=== PATIENT | male | born 1965 | race Asian ===

== ENCOUNTER 2019-08-25 11:41 | Emergency (ER) | payer OTHER ==
[2019-08-25 12:01] VITALS: BMI 28.8
[2019-08-25] MEDS ORDERED: ACETAMINOPHEN 1000 MG/100 ML VIAL (NON FORMULARY) IVPB ONE (12:55)
[2019-08-25] MEDS ORDERED: ACETAMINOPHEN INJECTION 100 ML IVPB ONE (12:59)
--- NOTE | 2019-08-25 13:00 | PDOC ---
History of Present Illness - General Chief Complaint: Pain, Acute Stated Complaint: RT.TESTICLE PAIN/GROIN AREA PROBLEM Time Seen by Provider: 08/25/19 12:35 History Source: Patient Exam Limitations: No Limitations - History of Present Illness Travel History: Yes ([place]) Initial Comments: 08/25/19 12:57 Patient is a 54 year old male with PMH of HTN, HLD, gout who presents with R testicular pain and swelling for 2 months. Pt states that symptoms are worse with standing and walking, improved when he lays flat. He states that his R testicle ocmes increasingly swollen and tender after sanding for several minutes. Pain has worsened over last 2 weeks, so he decided to finally come to the ED. He denies any fevers, chills, abd pain, nausea, vomiting, urinary symptoms. Pt denies hx of STIs. Of note, pt is a heavy alcohol user. He drinks ~6 beers a day. Timing/Duration: reports: getting worse Quality: reports: moderate Past History - Past Medical History Allergies/Adverse Reactions: Allergies Allergy/AdvReac Type Severity Reaction Status Date / Time No Known Allergies Allergy Verified 11/27/17 03:07 Home Medications: Ambulatory Orders Allopurinol [Zyloprim -] 200 mg PO DAILY #30 tablet 12/01/17 Colchicine [Colcrys] 0.6 mg PO BID #0 tablet 12/01/17 Ibuprofen 600 mg PO QID PRN #20 tablet 12/01/17 Metoprolol Tartrate [Lopressor -] 25 mg PO BID #14 tablet 12/01/17 levoFLOXacin [Levaquin -] 500 mg PO DAILY #10 tablet 08/25/19 COPD: No HTN: Yes Hypercholesterolemia: Yes - Surgical History Appendectomy: Yes - Immunization History Immunization Up to Date: No - Psycho Social/Smoking Cessation Hx Smoking Status: No Smoking History: Never smoked Have you smoked in the past 12 months: No Number of Cigarettes Smoked Daily: 0 Information on smoking cessation initiated: No Hx Alcohol Use: Yes (6 beers a day) Drug/Substance Use Hx: No Substance Use Type: Alcohol Review of Systems - Review of Systems Constitutional: Yes: See HPI. No: Fever ABD/GI: Yes: Abdominal Distended. No: Nausea, Vomiting, Abdominal cramping : Yes: Testicular Swelling, Testicular Pain. No: Dysuria *Physical Exam - Vital Signs Last Vital Signs Temp Pulse Resp BP Pulse Ox 98.4 F 83 16 166/103 H 98 08/25/19 11:58 08/25/19 11:58 08/25/19 11:58 08/25/19 11:58 08/25/19 11:58 - Physical Exam General Appearance: Yes: Nourished Cardiovascular: positive: Regular Rhythm, S1, S2. negative: Edema Vascular Pulses: Dorsalis-Pedis (R): 2+, Doralis-Pedis (L): 2+ Gastrointestinal/Abdominal: positive: Normal Bowel Sounds, Protuberent, Distended. negative: Tender, Tenderness Male Genitalia: positive: testicular tenderness, epididymus tender. negative: hematuria ED Treatment Course - LABORATORY CBC & Chemistry Diagram: 08/25/19 13:03 08/25/19 13:03 - RADIOLOGY Radiology Studies Ordered: Category Date Time Status SCROTUM AND CONTENTS US [US] Stat Ultrasound 08/25/19 12:53 Ordered Medical Decision Making - Medical Decision Making 08/25/19 13:07 CBC, CMP, scrotal US, CTAP IV tylenol for pain 08/25/19 16:13 CBC wnl CTAP: no acute pathology. Severely enlarged RLQ mesenteric lymph nodes possible hyperplastic in nature. Scrotal US: right-sided epididymitis and possible orchitis with loculated right- sided hydrocele. >>Consult urology 08/25/19 16:14 08/25/19 18:[address] Mcmullen and recommended outpatient po antibiotics and f/u as outpatient. Pt made aware. Discharge - Discharge Information Problems reviewed: Yes Clinical Impression/Diagnosis: Orchitis and epididymitis Condition: Stable - Admission No - Additional Discharge Information Prescriptions: levoFLOXacin [Levaquin -] 500 mg PO DAILY #10 tablet - Follow up/Referral Referrals: Olvin Matos MD [Staff Physician] - - Patient Discharge Instructions Patient Printed Discharge Instructions: DI for Epididymitis Additional Instructions: Please follow up with Dr. Mcmullen in 1-2 days. Please take your antibiotics as prescribed. Please return to the ER with any worsening symptoms. - Post Discharge Activity
--- NOTE | 2019-08-25 13:23 | PDOC ---
Documentation entered by Bronson Agustin SCRIBE, acting as scribe for David Rodriguez MD. David Rodriguez MD: This documentation has been prepared by the Vamsi rodas Daniel, SCRIBE, under my direction and personally reviewed by me in its entirety. I confirm that the documentation accurately reflects all work, treatment, procedures, and medical decision making performed by me. Attending Attestation - Resident Resident Name: [email or web address] - ED Attending Attestation I have performed the following: I have examined & evaluated the patient, The case was reviewed & discussed with the resident, I agree w/resident's findings & plan, Exceptions are as noted - HPI HPI: 08/25/19 12:53 The patient is a 54 year old male with a past medical history of HTN, HLD, and gout here today for evaluation of R testicular pain and swelling. The patient reports that he has had right testicular pain and swelling intermittently since 06/26 but states that it became worse in the past 2 weeks. He notes that it is worse with ambulating and alleviated by lying flat. Denies abdominal pain. Denies N/V. Denies urinary symptoms. Allergies: NKA Social history: Patient notes 6 beer daily alcohol use. - Physicial Exam PE: 08/25/19 12:53 GENERAL: Awake, alert, and fully oriented, in no acute distress. HEAD: No signs of trauma EYES: PERRLA, EOMI, sclera anicteric, conjunctiva clear ENT: Auricles normal inspection, hearing grossly normal, nares patent, oropharynx clear without exudates. Moist mucosa NECK: Nontender, no stepoffs, Normal ROM, supple, no lymphadenopathy, JVD, or masses LUNGS: Breath sounds equal, clear to auscultation bilaterally. No wheezes, and no crackles HEART: Regular rate and rhythm, normal S1 and S2, no murmurs, rubs or gallops ABDOMEN: Soft, nontender, normoactive bowel sounds. No guarding, no rebound. No masses EXTREMITIES: Normal range of motion, no edema. No clubbing or cyanosis. No cords, erythema, or tenderness NEUROLOGICAL: Cranial nerves II through XII intact. 5/5 strength and sensation in all extremities, Normal speech, normal gait, normal cerebellar function SKIN: Warm, Dry, normal turgor, no rashes or lesions noted. : + R scrotal swelling - Medical Decision Making 08/25/19 13:24 54 M with R scrotal swelling and pain. Suspect inguinal hernia. Pt with no s/s obstruction. - Labs, UA - Scrotal US - CTAP
[2019-08-25 13:32] LABS: HEMATOCRIT 39.6 % (35.4-49); HEMOGLOBIN 13.5 GM/dL (11.7-16.9); MCH 32.7 pg (25.7-33.7); MEAN CELL VOLUME 96.3 fl (80-96); MEAN PLT VOLUME 8.1 fl (7.5-11.1); PLATELET COUNT 217 K/MM3 (134-434); RBC 4.12 M/mm3 (4.00-5.60); RDW 13.2 % (11.9-15.9); WHITE BLOOD COUNT 8.5 K/mm3 (4.0-10.0)
[2019-08-25 13:51] LABS: INR 1.15 (0.83-1.09); PROTHROMBIN TIME (PATIENT) 13.6 SEC (9.7-13.0)
[2019-08-25 13:52] LABS: PH,URINE 5.5 (5.0-8.0); URINE APPEARANCE CLEAR; URINE BILIRUBIN NEGATIVE (NEGATIVE); URINE COLOR DK YELLOW; URINE GLUCOSE (UA) TRACE (NEGATIVE); URINE KETONE NEGATIVE (NEGATIVE); URINE LEUK ESTERASE NEGATIVE (NEGATIVE); URINE NITRITE NEGATIVE (NEGATIVE); URINE PROTEIN TRACE (NEGATIVE)
[2019-08-25 16:19] LABS: ALBUMIN 3.3 g/dl (3.4-5.0); BILIRUBIN,TOTAL 0.3 mg/dL (0.2-1); BLOOD UREA NITROGEN 6.5 mg/dL (7-18); CALCIUM 8.5 mg/dL (8.5-10.1); CREATININE 0.8 mg/dL (0.55-1.3); POTASSIUM 3.5 mmol/L (3.5-5.1); TOT PROT 7.9 g/dl (6.4-8.2)
[2019-08-25] MEDS ORDERED: KETOROLAC TROMETHAMINE 30 MG/1 ML VIAL IVPUSH ONE (17:26)
--- NOTE | 2019-08-25 17:34 | PDOC ---
*Physical Exam - Vital Signs Last Vital Signs Temp Pulse Resp BP Pulse Ox 98.4 F 83 16 166/103 H 98 08/25/19 11:58 08/25/19 11:58 08/25/19 11:58 08/25/19 11:58 08/25/19 11:58 ED Treatment Course - LABORATORY CBC & Chemistry Diagram: 08/25/19 13:03 08/25/19 13:03 - ADDITIONAL ORDERS Additional order review: Laboratory Results 08/25/19 08/25/19 08/25/19 13:03 13:03 13:03 PT with INR 13.60 H INR 1.15 H Sodium Potassium Chloride Carbon Dioxide Anion Gap BUN Creatinine Est GFR (CKD-EPI)AfAm Est GFR (CKD-EPI)NonAf Random Glucose Calcium Total Bilirubin AST ALT Alkaline Phosphatase Total Protein Albumin Urine Color Dk yellow Urine Appearance Clear Urine pH 5.5 Ur Specific Dawson 1.025 Urine Protein Trace Urine Glucose (UA) Trace Urine Ketones Negative Urine Blood Negative Urine Nitrite Negative Urine Bilirubin Negative Urine Urobilinogen 1.0 Ur Leukocyte Esterase Negative Blood Type A POSITIVE Antibody Screen Negative 08/25/19 13:03 PT with INR INR Sodium 136 Potassium 3.5 Chloride 103 Carbon Dioxide 23 Anion Gap 11 BUN 6.5 L Creatinine 0.8 Est GFR (CKD-EPI)AfAm 118.20 Est GFR (CKD-EPI)NonAf 101.99 Random Glucose 169 H Calcium 8.5 Total Bilirubin 0.3 AST 43 H ALT 49 Alkaline Phosphatase 110 Total Protein 7.9 Albumin 3.3 L Urine Color Urine Appearance Urine pH Ur Specific Dawson Urine Protein Urine Glucose (UA) Urine Ketones Urine Blood Urine Nitrite Urine Bilirubin Urine Urobilinogen Ur Leukocyte Esterase Blood Type Antibody Screen 08/25/19 13:03 RBC 4.12 MCV 96.3 H MCHC 34.0 RDW 13.2 MPV 8.1 - Medications Given in the ED: ED Medications Discontinued Medications Generic Name Dose Route Start Last Admin Trade Name Freq PRN Reason Stop Dose Admin Acetaminophen 1,000 mg 08/25/19 12:55 08/25/19 13:11 Ofirmev Injection - IVPB 08/25/19 12:56 1,000 mg ONCE ONE Administration Medical Decision Making - Medical Decision Making 08/25/19 17:33 54-year-old male who presented with right scrotal swelling. Urinalysis negative Ultrasound showed epididymitis and loculated hydrocele We are pending a call back from urology, Dr. Wesley Discharge - Discharge Information Condition: Stable - Follow up/Referral - Patient Discharge Instructions - Post Discharge Activity
[2019-08-25 18:23] VITALS: BP 144/91; PULSE 71; TEMP 97.9
[2019-08-25] MEDS ORDERED: KETOROLAC TROMETHAMINE 30 MG/1 ML VIAL ONE (18:24)
== END 2019-08-25 19:01 | disposition home or self-care (01) ==
LOC: JER 11:41
PROC: 3E033NZ Introduction of Analgesics, Hypnotics, Sedatives into Peripheral Vein, Percutaneous Approach (ICD-10-PCS; principal; 2019-08-25)
PROC: 3E0333Z Introduction of Anti-inflammatory into Peripheral Vein, Percutaneous Approach (ICD-10-PCS; 2019-08-25)
DX: N45.3 Epididymo-orchitis (principal); N43.2 Other hydrocele; I10 Essential (primary) hypertension; E78.5 Hyperlipidemia, unspecified; E78.00 Pure hypercholesterolemia, unspecified
CPT/HCPCS: 36415; 74176-TC; 76870-TC; 80053; 81003; 85027; 85610; 86850; 86900; 86901; 87086; 87491; 87591; 99282-25; J0131

== ENCOUNTER 2020-08-30 23:48 | Emergency (ER) | payer OTHER ==
[2020-08-30 23:58] VITALS: BMI 34.2
[2020-08-31 02:08] VITALS: BP 170/97; PULSE 91; TEMP 98.1
== END 2020-08-31 02:07 | disposition home or self-care (01) ==
LOC: JER 23:48
PROC: 0J9P0ZZ Drainage of Left Lower Leg Subcutaneous Tissue and Fascia, Open Approach (ICD-10-PCS; principal; 2020-08-30)
DX: L03.032 Cellulitis of left toe (principal)
CPT/HCPCS: 73660-TC-LT-FY; 82962; 99284-25

== ENCOUNTER 2022-04-06 08:06 | Emergency (ER) | payer OTHER ==
[2022-04-06 09:36] VITALS: BP 163/112; PULSE 103; TEMP 98.3; BMI 21.5
[2022-04-06] MEDS ORDERED: INDOMETHACIN 50 MG CAPSULE PO ONE (09:38)
[2022-04-06] MEDS ORDERED: predniSONE 20 MG TABLET (UD) PO ONE (10:28)
[2022-04-06] MEDS ORDERED: predniSONE 20 MG TABLET (UD) ONE (10:30)
== END 2022-04-06 10:50 | disposition home or self-care (01) ==
LOC: JERFT 08:06
DX: M10.471 Other secondary gout, right ankle and foot (principal); M25.562 Pain in left knee; G89.29 Other chronic pain
CPT/HCPCS: 73562-TC-LT-FY; 73610-TC-RT-FY; 99284-25

== ENCOUNTER 2025-02-21 14:28 | Observation (INO) | payer OTHER ==
[2025-02-21 14:35] VITALS: BMI 27.3
[2025-02-21 15:46] LABS: ABSOLUTE IMMATURE GRANULOCYTES 0.01 x10^3/uL (0.0-0.031); BASOPHILS # 0.07 x10^3/uL (0.01-0.08); EOSINOPHIL % 3.6 % (0.8-7.0); EOSINOPHILS # 0.24 x10^3/uL (0.04-0.54); HEMOGLOBIN 14.9 g/dL (13.7-17.5); MCHC 34.7 g/dl (32.3-36.5); MEAN CELL VOLUME 94.9 fl (79.0-92.2); MEAN PLT VOLUME 9.9 fl (9.4-12.4); MONOCYTE # 0.71 x10^3/uL (0.30-0.82); MONOCYTE % 10.6 % (5.3-12.2); PLATELET COUNT 182 x10^3/uL (163-337); RDW 11.8 % (12.2-16.1)
[2025-02-21 16:08] LABS: POTASSIUM 3.9 mmol/L (3.5-5.1)
[2025-02-21 16:10] LABS: CALCIUM 9.5 mg/dL (8.5-10.1)
[2025-02-21 16:11] LABS: ALBUMIN 3.6 g/dl (3.4-5.0); BLOOD UREA NITROGEN 9.7 mg/dL (7-18)
[2025-02-21 16:14] LABS: CREATININE 0.8 mg/dL (0.55-1.3)
[2025-02-21 16:15] LABS: BILIRUBIN,TOTAL 0.7 mg/dL (0.2-1); TOT PROT 7.7 g/dl (6.4-8.2)
[2025-02-21 16:26] LABS: EPI CELLS 8 /uL (0-25.1); HYALINE CASTS 0 /uL (0-3.1); URINE APPEARANCE CLEAR; URINE BACTERIA 19 /uL (0-1359); URINE BILIRUBIN NEGATIVE (NEGATIVE); URINE COLOR YELLOW; URINE GLUCOSE (UA) NEGATIVE (NEGATIVE); URINE KETONE NEGATIVE (NEGATIVE); URINE LEUK ESTERASE 2+ (NEGATIVE); URINE NITRITE NEGATIVE (NEGATIVE); URINE PROTEIN NEGATIVE (NEGATIVE); URINE RBC 9 /uL (0-23.9); URINE UROBILINOGEN 0.2 mg/dL (0.2-1.0); URINE WBC 169 /uL (0-25.8)
[2025-02-21] MEDS ORDERED: ONDANSETRON 4 MG/2 ML VIAL ONE (16:49)
[2025-02-21] MEDS: SODIUM CHLORIDE 1,000 ML IV STA (16:59)
[2025-02-21] MEDS: ONDANSETRON *ODT* 4 MG TABLET SL ONE (17:00)
[2025-02-21] MEDS ORDERED: ATORVASTATIN CA 20 MG TABLET (FP) ONE (21:28)
[2025-02-21] MEDS ORDERED: amLODIPine BESYLATE 5 MG TABLET (FP) ONE (21:29)
[2025-02-21] MEDS ORDERED: FOLIC ACID 1 MG TABLET (FP) ONE (21:29)
[2025-02-21] MEDS: ATORVASTATIN CA 20 MG TABLET (FP) PO SCH (21:35)
[2025-02-21] MEDS: amLODIPine BESYLATE 5 MG TABLET (FP) PO ONE (21:35)
[2025-02-21] MEDS: FOLIC ACID 1 MG TABLET (FP) PO ONE (21:35)
[2025-02-21] MEDS: ALLOPURINOL 100 MG TABLET (FP) PO SCH (22:20)
[2025-02-22 07:44] LABS: ABSOLUTE IMMATURE GRANULOCYTES 0.02 x10^3/uL (0.0-0.031); BASOPHILS # 0.07 x10^3/uL (0.01-0.08); EOSINOPHIL % 4.9 % (0.8-7.0); HEMATOCRIT 44.4 % (40.1-51.0); HEMOGLOBIN 14.9 g/dL (13.7-17.5); MCHC 33.6 g/dl (32.3-36.5); MEAN CELL VOLUME 97.8 fl (79.0-92.2); MEAN PLT VOLUME 9.9 fl (9.4-12.4); MONOCYTE # 0.77 x10^3/uL (0.30-0.82); MONOCYTE % 12.5 % (5.3-12.2); PLATELET COUNT 179 x10^3/uL (163-337); RDW 11.9 % (12.2-16.1)
[2025-02-22 07:57] LABS: POTASSIUM 3.8 mmol/L (3.5-5.1)
[2025-02-22 08:09] LABS: CALCIUM 9.4 mg/dL (8.5-10.1)
[2025-02-22 08:10] LABS: BLOOD UREA NITROGEN 7.3 mg/dL (7-18)
[2025-02-22 08:13] LABS: CREATININE 0.8 mg/dL (0.55-1.3)
[2025-02-22] MEDS: amLODIPine BESYLATE 5 MG TABLET (FP) PO SCH (09:26)
[2025-02-22] MEDS: FOLIC ACID 1 MG TABLET (FP) PO SCH (09:26)
[2025-02-22] MEDS ORDERED: LORazepam 2 MG/ML SDV VIAL IVPUSH PRN (15:22)
[2025-02-23] MEDS: amLODIPine BESYLATE 5 MG TABLET (FP) PO ONE (18:12)
[2025-02-24] MEDS: amLODIPine BESYLATE 10 MG TABLET (FP) PO SCH (09:40)
[2025-02-24] MEDS: ENALAPRIL MALEATE 5 MG TABLET PO SCH (09:40)
[2025-02-24 12:47] VITALS: TEMP 97.9
[2025-02-24 14:24] VITALS: BP 120/86; PULSE 73; RESP 20
== END 2025-02-24 15:40 | disposition home or self-care (01) ==
LOC: JER 14:28 → JERBED 17:40 → J4W 22:04
PROVIDERS: ADMIT Internal Medicine; ATTEND Internal Medicine
PROC: 3E0337Z Introduction of Electrolytic and Water Balance Substance into Peripheral Vein, Percutaneous Approach (ICD-10-PCS; principal; 2025-02-21)
DX: F10.20 Alcohol dependence, uncomplicated (principal); E11.9 Type 2 diabetes mellitus without complications; I16.0 Hypertensive urgency; I10 Essential (primary) hypertension; E78.5 Hyperlipidemia, unspecified; M10.9 Gout, unspecified; R55 Syncope and collapse; Z90.49 Acquired absence of other specified parts of digestive tract
CPT/HCPCS: 0241U-QW; 36415; 70450-TC; 71045-TC-FY; 80048; 80053; 80061; 81003; 83036; 84443; 84484; 85025; 87086; 93005; 93010; 93306-TC; 99285-25; G0378; Q0162